=== PATIENT | female | born 1970 | race Caucasian/White ===

== ENCOUNTER 2021-10-02 18:54 | Emergency (ER) | payer BC, SELFPAY ==
[2021-10-02 19:03] VITALS: BP 115/71; PULSE 96; RESP 16; TEMP 36.8; O2SAT 100
--- NOTE | 2021-10-02 19:26 | WPDEDEXPGENP ---
HPI - General Ped General Chief complaint: Urogenital-Female Stated complaint: urine is red and yellow History of Present Illness HPI narrative: Patient is a 51-year-old female presents to the [facility] via POV for evaluation of right upper quadrant pain that has been present for 2 days. Additionally, she reports bilateral flank pain, right yellow and red urine. Denies taking meds for symptoms. She was advised by her sister to seek medical care to rule out dehydration prompting today's visit. Related Data Allergies Allergy/AdvReac Type Severity Reaction Status Date / Time erythromycin base Allergy Severe shortness Verified 07/27/21 10:25 of breath, stabbing pain Pediatric Review of Systems Review of Systems: History of cholecystectomy and appendectomy. History of pyelonephritis. Pertinent negatives fever, chills, sweats, malaise, poor p.o. intake, change in appetite, recent weight loss, lymphadenopathy, headache, sore throat, dizziness, Urinary frequency, urinary urgency, dysuria, extremity paresthesias, blood in stool, nausea, vomiting, diarrhea, constipation, belching, bloating, dry mouth, heartburn, jaundice, vomiting blood, PMFSH Past Medical History Medical History Tobacco use Surgical History Surgical History H/O bilateral breast reduction surgery (~1989) History of appendectomy (~1986) History of cholecystectomy (~2011) History of sleeve gastrectomy (~05/21/10) History of tonsillectomy and adenoidectomy (~1981) Family History Family History Father Diabetes mellitus Social History Social History (Updated 07/27/21 @ 10:50 by Marilee Avila NP) Social History: Patient is , she lives with her in [place]. She has one adult son. 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 HEAD: Normocephalic, atraumatic. No sinus tenderness or facial swelling appreciated. EYES: PERRLA and EOMI. No evidence of erythema, swelling, or drainage. ENT: Mucous membranes moist and pink. Uvula is midline without erythema and swelling. No evidence of petechial rash, cobblestoning, lesions, ulcers, erythema, swelling, exudates, peritonsillar abscess, tenting, or drooling. Breath odor and voice normal. NECK: Supple. No Lymphadenopathy or nuchal rigidity appreciated. CHEST: Bilateral lung lazcano are clear to auscultation. No respiratory distress. No evidence of cough or pleuritic cp upon examination. HEART: Regular rate and rhythm. No murmur, gallop, or rub heard. ABDOMEN: Soft, nontender, nondistended, normal active bowel sounds in all quadrants. Mild tenderness palpated in right upper quadrant. No guarding. No rebound tenderness. No pulsatile or palpable abdominal mass(es). Mild bilateral CVAT EXTREMITIES: Normal range of motion. No edema. SKIN: Warm, dry, no rash. Excellent skin turgor. NEURO: No focal deficits. Alert and oriented x3. Course Course Emergency Course: Go to ER now. The patient/guardian displays adequate decision making capability and despite a detailed discussion of alternatives, benefits, risks, and consequences refuses higher level of care to ER via EMS. Level of Care: Express Care Visit Vital Signs Vital signs: Vital Signs Temperature 98.3 F 10/02/21 19:03 Pulse Rate 96 10/02/21 19:03 Respiratory Rate 16 10/02/21 19:03 Blood Pressure 115/71 10/02/21 19:03 Pulse Oximetry 100 10/02/21 19:03 Temperature
== END 2021-10-02 19:27 | disposition left against medical advice (07) ==
PROVIDERS: Emergency Provider Nurse Practitioner Family; PCP Family Medicine
DX: R10.31 Right lower quadrant pain (principal); R31.9 Hematuria, unspecified; F17.210 Nicotine dependence, cigarettes, uncomplicated; Z98.84 Bariatric surgery status
CPT/HCPCS: 81003; 87086; 99213; G0463

== ENCOUNTER → 2021-11-01 09:44 | Outpatient (CLI) | payer BC, SELFPAY ==
--- NOTE | ~2021-11-01 | XR_ITS ---
EXAMINATION: [id number] INDICATION: Pleural TECHNIQUE: A frontal view of the chest and 3 views of the bilateral ribs were obtained. COMPARISON: None. FINDINGS: The lungs are free of acute opacities. No pleural effusion or pneumothorax. The cardiomedia stinal silhouette is normal. There are surgical changes in the left upper quadrant. IMPRESSION: 1. No acute cardiopulmonary abnormality or evidence of displaced rib fracture. Reviewed, dictated and finalized at location B.
== END ==
PROVIDERS: PCP Nurse Practitioner Family; Visit Provider Nurse Practitioner Family
DX: R07.81 Pleurodynia (principal)
CPT/HCPCS: 71111

== ENCOUNTER 2022-01-03 08:44 | Outpatient (CLI) | payer BC, SELFPAY ==
--- NOTE | ~2022-01-03 | MM_ITS ---
EXAMINATION: MM screening angélica BI w lena HISTORY: Screening mammogram TECHNIQUE: Craniocaudal and mediolateral oblique 3-D tomosynthesis images were obtained and synthetic 2-D images were generated. CAD analysis was submitted and interpreted. COMPARISON: No prior mammogram is available for comparison at this institution. BREAST PARENCHYMAL COMPOSITION: There are scattered areas of fibroglandular density. FINDINGS: There is no evidence of suspicious mass, calcification, or architectural distortion to sugg est malignancy in either breast. There has been no suspicious interval change. IMPRESSION: 1. No mammographic evidence of malignancy. 2. Recommend routine screening mammography in one year. BI-RADS Category 1: Negative Reviewed, dictated and finalized at location A.
== END 2022-01-03 08:45 | disposition home or self-care (01) ==
LOC: ANHIMG 08:45
PROVIDERS: PCP Nurse Practitioner Family; Visit Provider Obstetrics & Gynecology
DX: Z12.31 Encounter for screening mammogram for malignant neoplasm of breast (principal)
CPT/HCPCS: 77063; 77067

== ENCOUNTER 2023-01-20 09:27 | Emergency (ER) | payer OTHER, SELFPAY ==
--- NOTE | ~2023-01-20 | XR_ITS ---
EXAMINATION: XR abdomen/kub 1V DATE: 01/20/2023 10:07 INDICATION: Right flank pain. TECHNIQUE: A supine view of the abdomen on 2 radiographs was obtained. COMPARISON: None. FINDINGS: There are no dilated loops of bowel. There is a small volume of stool in the colon. There i s no visible urolithiasis. There are surgical clips in left abdomen. IMPRESSION: 1. Normal bowel gas pattern. Reviewed, dictated and finalized at location A.
[2023-01-20 09:35] VITALS: BP 101/78; PULSE 98; RESP 16; TEMP 36.2; O2SAT 100
--- NOTE | 2023-01-20 09:45 | ED.FEMALEGU ---
HPI - Female Genitourinary General Chief complaint: Urogenital-Female Stated complaint: VOMITING/DARK URINE/FLANK PAIN Time Seen by Provider: 01/20/23 09:45 Source: patient and RN notes reviewed Mode of arrival: ambulatory Limitations: no limitations History of Present Illness HPI Narrative: 52 y/o female presented for c/o right sided abdominal pain and right flank pain for 2-3 days. Endorses associated nausea and vomiting, decreased appetite, and dark colored urine this morning. Rates pain up to 10/10 at times. Denies cough, sob, chest pain, hematuria, dysuria, frequency, fever/chills. States she has had similar symptoms intermittently since 2021, with an unremarkable workup. Denies history of UTIs or kidney infections. Hx appy and cristiano. Smokes 1/2ppd. Related Data Home Medications Medication Instructions Recorded Confirmed vitamin B12 500 mcg-folic acid 400 1 tablet PO DAILY 10/18/21 01/20/23 mcg tablet Allergies Allergy/AdvReac Type Severity Reaction Status Date / Time erythromycin base Allergy Severe shortness Verified 01/20/23 09:51 of breath, stabbing pain Review of Systems Review of Systems: CONSTITUTIONAL: Denies body aches, fever, chills, or sweats. CARDIOVASCULAR: Denies chest pain, palpitations, or edema. RESPIRATORY: Denies cough or dyspnea. GASTROINTESTINAL: Reports right abdominal pain, nausea, vomiting, decreased appetite. Denies diarrhea. GENITOURINARY: Denies dysuria, frequency, urgency, hematuria, Reports flank pain SKIN: Denies rash, itching, or wounds. MUSCULOSKELETAL: Denies myalgia. [facility] Past Medical History Medical History History of endometrial biopsy Mixed hyperlipidemia Tobacco use Surgical History Surgical History H/O bilateral breast reduction surgery (~1989) History of appendectomy (~1986) History of cholecystectomy (~2011) History of sleeve gastrectomy (~05/21/10) History of tonsillectomy and adenoidectomy (~1981) Family History Family History Father Diabetes mellitus Social History Social History Social History: Patient is , she lives with her in [place]. She has one adult son. 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 Please see nursing chart for further information. There is no relevant family history pertinent to the presenting complaint Exam Narrative: GENERAL: Well-appearing and in no acute distress. HEAD: Normocephalic EYES: EOMI. . ENT: Mucous membranes pink and moist. NECK: Normal AROM. Supple. CHEST: No respiratory distress. Clear to auscultation. HEART: Regular rate and rhythm. ABDOMEN: Right mid and upper abdominal tenderness. Soft, nondistended, normal active bowel sounds. Right CVA tenderness. SKIN: Warm, dry, no rash. NEURO: No focal deficits. Alert and oriented x3. Gait steady. PSYCH: Normal affect. Course Course Emergency Course: Patient is aware of diagnosis, understands and agrees to treatment plan. Anticipatory guidance given. Patient agrees to follow-up as directed and is aware of reasons to seek
== END 2023-01-20 11:30 | disposition short-term general hospital (02) ==
PROVIDERS: Emergency Provider Nurse Practitioner Family; PCP Family Medicine
DX: R10.9 Unspecified abdominal pain (principal); F17.210 Nicotine dependence, cigarettes, uncomplicated; E78.2 Mixed hyperlipidemia; Z98.84 Bariatric surgery status
CPT/HCPCS: 74018; 81003; 87086; 87088; 99213; G0463

== ENCOUNTER 2023-01-20 11:46 | Emergency (ER) | payer OTHER, SELFPAY ==
[2023-01-20] VITALS (33 sets, daily range): BP systolic 95–124; BP diastolic 48–73; PULSE 73–101; RESP 14–18; TEMP 36.6; O2SAT 91–100
--- NOTE | ~2023-01-20 | CT_ITS ---
EXAMINATION: CT abdomen pelvis w con DATE: 01/20/2023 18:25 INDICATION: Right-sided abdominal pain TECHNIQUE: Computed tomography (CT) of the abdomen and pelvis was performed with 100 cc Omnipaque 350 intravenous contrast. The dose-length product was 709.14 mGy-cm. Automated exposure control and iter ative reconstruction technique were employed. COMPARISON: None. FINDINGS: There is dependent atelectasis. Heart size normal. Discogenic pleural or pericardial effusi on. Gallbladder is not identified, likely surgically absent. There is dilation of the intrahepatic an d extrahepatic bile ducts. There are changes of gastric bypass surgery. The spleen, pancreas, adrenal glands and kidneys are unremarkable. No hydronephrosis. Nonobstructive bowel gas pattern. No abnorma l pelvic masses or fluid collections. No free air or free fluid. No significant vascular abnormality. No lymphadenopathy. No acute osseous abnormality. IMPRESSION: 1. Dilated intra and extrahepatic bile ducts. Common bile duct measures 1.4 cm. No obstructing stone or mass identified. Gallbladder is identified, likely surgically absent. Consider correlation with MR CP as clinically indicated. Reviewed, dictated and finalized at location A. IMPRESSION: 1. Dilated intra and extrahepatic bile ducts. Common bile duct measures 1.4 cm. No obstructing stone or mass identified. Gallbladder is identified, likely lalo gically absent. Consider correlation with MRCP as clinically indicated.
--- NOTE | ~2023-01-20 | US_ITS ---
US abdomen limited INDICATION: Transaminitis PROCEDURE: Realtime right upper abdominal ultrasound. COMPARISON: No prior studies for comparison. FINDINGS: The pancreas is normal without focal mass or pancreatic ductal dilation. Liver echotexture is normal without focal mass or intrahepatic biliary dilatation. There is normal directional flow i n the portal vein. Gallbladder is surgically absent. Common bile duct measures 11 mm. No sonographic Garcia's sign. Ri ght renal echotexture is unremarkable. IMPRESSION: 1: Status post cholecystectomy with dilation of the common bile duct. No obstructing stone or mass id entified. Reviewed, dictated and finalized at location A. IMPRESSION: 1: Status post cholecystectomy with dilation of the common bile duct. No obstru cting stone or mass identified.
[2023-01-20 13:31] LABS: Appearance Urine Turbid (Clear); Bacteria Urine 1+ /hpf; Bilirubin Urine 3+ (Negative); Blood Urine 2+ (Negative); Color Urine Dark Yellow (Yellow); Glucose Urine UA Negative (Negative); Ketones Urine 1+ mg/dL (Negative); Leukocyte Esterase Ur 1+ LEU/UL (Negative); Need Manual Microscopic Reviewed; Nitrate Urine Negative (Negative); Protein Urine Trace mg/dL (Negative); Specific Grav Ur 1.014 (1.001-1.035); Squamous Epithelial Cell Urine Many /hpf (Few); WBC Urine 21-50 /hpf
[2023-01-20 13:35] LABS: Add Urine Microscopic? YES
--- NOTE | 2023-01-20 15:06 | PC.NURSE ---
EDP at bedside to assess pt
--- NOTE | 2023-01-20 15:11 | ED.ABDPAIN ---
HPI - Abdominal Pain General Chief Complaint: Abdominal Pain <LUIS Lake Last Filed: 01/21/23 09:32> Stated Complaint: right flank pain <LUIS Lake Last Filed: 01/21/23 09:32> Time Seen by Provider: 01/20/23 14:58 <LUIS Lake Last Filed: 01/21/23 09:32> Source: patient <LUIS Lake Last Filed: 01/21/23 09:32> Mode of arrival: ambulatory <LUIS Lake Last Filed: 01/21/23 09:32> Limitations: no limitations <LUIS Lake Last Filed: 01/21/23 09:32> History of Present Illness HPI narrative: This is a 52 year old female that presents to the ER for right sided flank pain. Ongoing over the last 2 days. Reports the pain radiates to her abdomen. Associated with nausea and vomiting. Reports her urine appears dark. Seen at urgent care and sent here for further evaluation. Denies fever or dysuria. <LUIS Lake Last Filed: 01/21/23 09:32> Related Data Home Medications: Home Medications Medication Instructions Recorded Confirmed vitamin B12 500 mcg-folic acid 400 1 tablet PO DAILY 10/18/21 01/20/23 mcg tablet <LUIS Lake Last Filed: 01/21/23 09:32> Allergies/Adverse Reactions: Allergies Allergy/AdvReac Type Severity Reaction Status Date / Time erythromycin base Allergy Severe shortness Verified 01/20/23 09:51 of breath, stabbing pain <LUIS Lake Last Filed: 01/21/23 09:32> Review of Systems Review of Systems: CONSTITUTIONAL: Denies fever GASTROINTESTINAL: Reports abdominal pain, nausea, vomiting GENITOURINARY: Denies dysuria or hematuria. <LUIS Lake Last Filed: 01/21/23 09:32> All systems reviewed & are unremarkable except as noted in HPI and below <LUIS Lake Last Filed: 01/21/23 09:32> PMFSH Past Medical History Medical History: Medical History History of endometrial biopsy Mixed hyperlipidemia Tobacco use <Rama Schuler PA-C - Last Filed: 01/21/23 09:32> Surgical History Surgical History: Surgical History H/O bilateral breast reduction surgery (~1989) History of appendectomy (~1986) History of cholecystectomy (~2011) History of sleeve gastrectomy (~05/21/10) History of tonsillectomy and adenoidectomy (~1981) <Rama Schuler PA-C - Last Filed: 01/21/23 09:32> Family History Family History: Family History Father Diabetes mellitus <Rama Schuler PA-C - Last Filed: 01/21/23 09:32> Social History Social History: Social History Social History: Patient is , she lives with her in [place]. She has one adult son. 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 HEAD: Normocephalic, atraumatic. EYES: EOMI. CHEST: Clear to auscultation. No respiratory distress. No wheezes rales or rhonchi HEART: Regular rate and rhythm. No murmur heard. Normal peripheral pulses. ABDOMEN: Soft, nondistended, normal active bowel sounds. Tender to palpation of the right side of the abdomen, without guar
[2023-01-20] MEDS: ONDANSETRON INJ 4 MG/2 ML VIAL IV PUSH (15:39)
[2023-01-20] MEDS: MORPHINE SULFATE (*CRX) 4 MG/ML INJ IV PUSH ×2 (15:39→23:50)
[2023-01-20 17:26] LABS: Basophils Percent Auto 0.3 % (0.2-1.2); Eosinophils Absolute Auto 0.5 K/mm3 (0-0.3); Eosinophils Percent Auto 3.2 % (0-4.4); Hematocrit 40.1 % (37.0-47.0); Hemoglobin 13.5 g/dL (12.0-15.0); Immature Granulocyte Absolute 0.09 K/mm3 (0.00-0.031); Immature Granulocyte Percent A 0.6 % (0-0.5); Lymphocytes Absolute Auto 0.74 K/mm3 (0.9-3.2); Lymphocytes Percent Auto 4.7 % (18.3-44.2); Mean Corpuscular HGB Conc 33.7 g/dl (32-36); Mean Corpuscular Hemoglobin 33.3 pg (26-34); Mean Platelet Volume 10.5 fl (7.4-10.4); Monocytes Absolute Auto 0.5 K/mm3 (0.1-0.6); Neutrophils Absolute Auto 13.8 K/mm3 (1.3-6.7); Neutrophils Percent Auto 88.2 % (45.5-73.1); Platelet Count Result 197 k/mm3 (150-375); Red Blood Count 4.05 M/mm3 (4.2-5.4); Red Cell Distribution Width 12.1 % (11.5-14.5); White Blood Count 15.7 K/mm3 (4.5-10.0)
[2023-01-20 17:36] LABS: Lactic Acid Reflex 0.8 mmol/L (0.7-2.0)
[2023-01-20 17:37] LABS: Alanine Aminotransferase 469 U/L (6-35); Albumin Level 3.6 g/dL (3.5-5.1); Alkaline Phosphatase 187 U/L (38-126); Anion Gap 9 mmol/L (8-16); Aspartate Amino Transferase 209 U/L (14-36); Bilirubin,Total 5.4 mg/dL (0.2-1.3); Blood Urea Nitrogen 15 mg/dL (7-17); Calcium 8.9 mg/dL (8.4-10.2); Carbon Dioxide 21 mmol/L (22-30); Chloride 104 mmol/L (98-107); Estimated Glomerular Filt Rate > 60; Glucose 98 mg/dL (65-110); Sodium 134 mmol/L (137-145)
--- NOTE | 2023-01-20 18:30 | PC.NURSE ---
Patient off unit to radiology.
[2023-01-20 18:35] LABS: Lipase 32 U/L (23-300)
--- NOTE | 2023-01-20 19:16 | PC.NURSE ---
Patient report given to REY Castro. All questions answered and care of patient transferred.
--- NOTE | 2023-01-20 20:25 | PC.NURSE ---
requested to be called if any changes occur. 's name is Tre and phone number us [phone]
--- NOTE | 2023-01-20 21:46 | PC.NURSE ---
[facility] called for update on patient. States they will be in contact and are not sure when a bed will be available.
[2023-01-21] VITALS (28 sets, daily range): BP systolic 90–100; BP diastolic 49–69; PULSE 67–83; RESP 14–20; TEMP 37.2–37.3; O2SAT 93–100
[2023-01-21] MEDS: SODIUM CHLORIDE 0.9% IV 1,000 ML 999 ML IV CONT (06:32)
[2023-01-21] MEDS: SODIUM CHLORIDE 0.9% IV 1,000 ML 100 ML IV CONT (06:42)
[2023-01-21] MEDS: MORPHINE SULFATE (*CRX) 2 MG/ML INJ IV PUSH (08:01)
== END 2023-01-21 09:10 | disposition short-term general hospital (02) ==
PROVIDERS: Emergency Medicine; Physician Assistant; Emergency Provider Physician Assistant; PCP Family Medicine
DX: N30.01 Acute cystitis with hematuria (principal); K83.8 Other specified diseases of biliary tract; E80.6 Other disorders of bilirubin metabolism; R74.01 Elevation of levels of liver transaminase levels; E78.2 Mixed hyperlipidemia; F17.210 Nicotine dependence, cigarettes, uncomplicated; Z98.84 Bariatric surgery status; Z90.49 Acquired absence of other specified parts of digestive tract
CPT/HCPCS: 36415; 74018; 74177; 76705; 80053; 81001; 81003; 81025; 83605; 83690; 85025; 87086; 96361; 96365; 96375; 96376; 99285; J0696; J2270; J2405; J7030; Q9967

== ENCOUNTER 2023-03-23 10:29 | Outpatient (CLI) | payer OTHER, SELFPAY ==
--- NOTE | ~2023-03-23 | MMUS_ITS ---
EXAMINATION: US breast RT limited, MM diagnostic angélica BI w lena HISTORY: Double bubble lump of the right breast. TECHNIQUE: Additional 3-D tomosynthesis images of the breasts were performed and synthetic 2-D images were generated. CAD analysis was submitted and interpreted. High resolution Limited right breast ult rasound was performed. COMPARISON: Comparison to multiple prior studies sequentially, with oldest reviewed study dated 01/03. BREAST PARENCHYMAL COMPOSITION: Breast composed of scattered areas of fibroglandular density FINDINGS: MAMMOGRAPHIC FINDINGS: The breasts are stable. No new masses, calcifications or architectural distortion. ULTRASOUND: Limited right breast ultrasound: There is a poorly circumscribed hypoechoic mass at 8:00, 9 cm from t he nipple with posterior shadowing. This area of abnormality is seen on post transverse and longitudi nal images measuring approximately 12 mm greatest dimension on longitudinal image. No other discrete mass identified. No definite mammographic correlate is seen. IMPRESSION: 1. Ill-defined hypoechoic right breast mass located at 8:00, 9 cm from the nipple. No mammographic co rrelate. 2. Recommend ultrasound-guided biopsy of the right breast. Alternatively, MRI of the breast may be co nsidered. BI-RADS category 4, suspicious findings. Reviewed, dictated and finalized at location A. [employer] IMPRESSION: 1. Ill-defined hypoechoic right breast mass located at 8:00, 9 cm from the nipp le. No mammographic correlate. 2. Recommend ultrasound-guided biopsy of the right breast. Alternatively, MRI o f the breast may be considered. BI-RADS category 4, suspicious findings.
== END 2023-03-23 10:30 | disposition home or self-care (01) ==
PROVIDERS: PCP Family Medicine; Visit Provider Obstetrics & Gynecology
DX: N63.10 Unspecified lump in the right breast, unspecified quadrant (principal); R92.8 Other abnormal and inconclusive findings on diagnostic imaging of breast
CPT/HCPCS: 76642; 77062; 77066; G0279